=== PATIENT | female | born 1965 | race Caucasian/White ===

== ENCOUNTER 2023-04-10 09:36 | Outpatient (OUT) | payer OTHER, SELFPAY ==
--- NOTE | 2023-04-10 09:40 | CT_ITS ---
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 TECHNIQUE: Axial, Coronal, and Sagittal CT images without and with IV contrast. Multi-planar/3-D imaging to optimize visualization of vascular anatomy. Dose reduction techniques were achieved by using automated exposure control and/or adjustment of mA and/or kV according to patient size and/or use of iterative reconstruction technique. FINDINGS: AORTA/VASCULAR: No aneurysm or dissection. CELIAC ARTERY: Partially rim calcified 1.2 cm aneurysm of the splenic artery at the splenic hilum. SMA: Normal mesenteric vessels. RENAL ARTERIES: Normal renal vessels. LUNG BASES: No visible pulmonary or pleural disease. LIVER: Stable small cysts versus hemangiomas. BILIARY: No visible dilatation or calcification. PANCREAS: No lesion, fluid collection, ductal dilatation, or atrophy. SPLEEN: No enlargement or focal lesion. ADRENALS: No mass or enlargement. KIDNEYS: No mass, obstruction, or calcification. BOWEL/MESENTERY: Small hiatal hernia. No visible mass, obstruction, or bowel wall thickening. RETROPERITONEUM: No mass or adenopathy. LYMPH NODES: No adenopathy. URINARY BLADDER: No visible focal wall thickening, lesion, or calculus. PELVIC ORGANS: Hysterectomy. ABDOMINAL WALL: No mass or hernia. BONES: No bony lesion or fracture. OTHER: Negative. CT/CT angio abdomen pelvis IMPRESSION: 1. Stable rim calcified 1.2 cm splenic artery aneurysm. Electronically authenticated by: BARBARA CLEMENTS Date: 04/10/2023 16:08
== END 2023-04-10 09:37 | disposition home or self-care (01) ==
LOC: CT 09:36
PROVIDERS: PCP Internal Medicine
DX: I72.8 Aneurysm of other specified arteries (principal)
CPT/HCPCS: 74174; Q9967